=== PATIENT | female | born 1970 | race Caucasian/White ===

== ENCOUNTER → 2018-08-08 | Outpatient (CLI) | payer BC ==
[~2018-08-08] MED LIST: AZIT-1 PO; DIAZ-308 PO; IBU800 PO; METH4TAB66 PO; TRIA1CAP81 PO
== END ==
LOC: AUD 12:30
PROVIDERS: ATTEND Otolaryngology
DX: H90.41 Sensorineural hearing loss, unilateral, right ear, with unrestricted hearing on the contralateral side (principal)
CPT/HCPCS: 92553; 92567